=== PATIENT | female | born 1985 | race Caucasian/White ===

== ENCOUNTER 2016-11-25 07:42 | Outpatient (RCR) | payer OTHER | END 2016-11-26 | LOC: M PT 07:42 | PROVIDERS: ATTEND Orthopaedic Surgery Adult Reconstructive Orthopaedic Surgery | DX: Z51.89 Encounter for other specified aftercare (principal); M25.511 Pain in right shoulder | CPT/HCPCS: 97110; 97140; 97162; G0283 ==

== ENCOUNTER 2016-12-22 07:45 | Outpatient (RCR) | payer OTHER | END 2016-12-26 | disposition home or self-care (01) | LOC: M PT 07:45 | PROVIDERS: ATTEND Orthopaedic Surgery Adult Reconstructive Orthopaedic Surgery | DX: Z51.89 Encounter for other specified aftercare (principal); S43.401A Unspecified sprain of right shoulder joint, initial encounter; X58.XXXA Exposure to other specified factors, initial encounter; Y92.9 Unspecified place or not applicable; Y93.9 Activity, unspecified; Y99.9 Unspecified external cause status ==

== ENCOUNTER → 2017-01-06 | Outpatient (CLI) | payer OTHER ==
[2017-01-06 13:57] LABS: ESTRADIOL < 19.0 PG/ML; FOLLICLE STIMULATING HORMONE 68.8 mIU/mL; LUTEINIZING HORMONE 39.9 mIU/mL
== END ==
LOC: M SMT 09:35
PROVIDERS: ATTEND Specialist
DX: N91.1 Secondary amenorrhea (principal)

== ENCOUNTER 2017-02-24 10:44 | Outpatient (RCR) | payer OTHER | END 2017-02-25 | LOC: M PT 10:44 | PROVIDERS: ATTEND Orthopaedic Surgery | DX: Z51.89 Encounter for other specified aftercare (principal); M25.519 Pain in unspecified shoulder | CPT/HCPCS: 97010; 97110; 97140; 97161; G0283 ==

== ENCOUNTER 2017-03-24 08:30 | Outpatient (RCR) | payer OTHER | END 2017-03-28 | LOC: M PT 08:30 | PROVIDERS: ATTEND Orthopaedic Surgery | DX: Z51.89 Encounter for other specified aftercare (principal); M25.519 Pain in unspecified shoulder | CPT/HCPCS: 97110; G0283 ==

== ENCOUNTER 2017-04-26 08:30 | Outpatient (RCR) | payer OTHER | END 2017-04-28 | disposition home or self-care (01) | LOC: M PT 08:30 | PROVIDERS: ATTEND Orthopaedic Surgery | DX: Z51.89 Encounter for other specified aftercare (principal); M25.519 Pain in unspecified shoulder ==